=== PATIENT | male | born 1990 | race African-American/Black ===

== ENCOUNTER 2016-10-31 00:19 | Emergency (ER) | payer SELFPAY ==
[~2016-10-31] VITALS: Ht 162.6 cm; Wt 60.3 kg
[2016-10-31 00:22] VITALS: BP 131/86
[2016-10-31 01:12] LABS: MCHC 35.9 G/DL (30.0-36.0); MCV 89.1 FL (86-99); MEAN PLAT.VOLUME 9.5 uM^3 (9.0-12.4); PLATELET COUNT 296 K/uL (156-360); RBC DIS.WIDTH-CV 12.4 % (11.8-14.6); RBC DIS.WIDTH-SD 39.1 % (39-53)
[2016-10-31 01:21] LABS: CHLORIDE 108 mEq/L (99-109); POTASSIUM 3.6 mEq/L (3.7-5.4); SODIUM 140 mEq/L (136-147)
[2016-10-31 01:23] LABS: GLUCOSE 85 mg/dL (70-99)
[2016-10-31 01:25] LABS: ANION GAP 9 MEQ/L (2-14)
[2016-10-31 01:27] LABS: GFR ESTIMATE (CALCULATED) > 59 mL/min/
[2016-10-31 01:28] LABS: UREA NITROGEN (BUN) 10 mg/dL (9-23)
== END 2016-10-31 02:29 | disposition left against medical advice (07) ==
LOC: EME 00:19
DX: R06.02 Shortness of breath (principal); Z53.21 Procedure and treatment not carried out due to patient leaving prior to being seen by health care provider
CPT/HCPCS: 71020; 80048; 85027